=== PATIENT | female | born 2005 | race Caucasian/White ===

== ENCOUNTER 2023-11-19 01:13 | Emergency (ER) | payer OTHER, SELFPAY ==
--- NOTE | 2023-11-19 | ECG_ITS ---
Test Reason : SYNCOPE Blood Pressure : / mmHG Vent. Rate : 086 BPM Atrial Rate : 086 BPM P-R Int : 124 ms QRS Dur : 088 ms QT Int : 402 ms P-R-T Axes : 029 041 024 degrees QTc Int : 481 ms Normal sinus rhythm with sinus arrhythmia Prolonged QT Abnormal ECG No previous ECGs available Referred By: Generic ED Physician Electronically Signed By:CAPO CORTES MD
[2023-11-19 01:21] VITALS: BP 123/84; PULSE 93; RESP 16; TEMP 36.8; O2SAT 99; BMI 24.9
[2023-11-19 01:52] LABS: MANUAL DIFF FLAG NO
[2023-11-19 01:55] LABS: Basophils Absolute Auto 0.1 X10*3/uL (0.0-0.2); Basophils Percent Auto 0.4 % (0-2); Eosinophils Absolute Auto 0.1 X10*3/uL (0.0-0.4); Eosinophils Percent Auto 0.5 % (0-4); Hematocrit 37.1 % (37.0-47.0); Hemoglobin 13.6 g/dl (12.0-16.0); Imm Gran Abs Auto 0.04 X10*3/uL (0.00-0.03); Imm Gran Pct Auto 0.3 % (0.0-0.4); Lymphocytes Absolute Auto 1.9 X10*3/uL (1.2-4.9); Lymphocytes Percent Auto 15.8 % (20-40); Mean Corpuscular HGB Conc 36.7 g/dl (31.0-35.0); Mean Corpuscular Hemoglobin 31.6 pg (27.0-33.0); Mean Corpuscular Volume 86.1 fL (80.0-98.0); Monocytes Absolute Auto 0.8 X10*3/uL (0.1-1.2); Monocytes Percent Auto 6.6 % (2-11); Neutrophils Absolute Auto 9.3 x10*3/uL (2.0-8.3); Neutrophils Percent Auto 76.4 % (45-73); Platelet Count 375 X10*3/uL (160-400); Red Blood Count 4.31 X10*6/uL (4.20-5.50); Red Cell Distribution Width 12.4 % (11.0-16.0); White Blood Count 12.2 X10*3/uL (4.8-10.8)
[2023-11-19 02:04] LABS: Appearance Urine Clear; Color Urine Yellow; Glucose Urine UA Negative (Negative); Leukocyte Esterase Urine Negative (Negative); Nitrite Urine Negative (Negative); PH 6.5 (5.0-9.0); Specific Gravity - Urine 1.015 (1.005-1.025); Urine Blood Negative (Negative); Urine Ketones Negative (Negative); Urine Protein Negative (Neg-Trace)
[2023-11-19 02:07] LABS: Ethanol < 10 mg/dL
[2023-11-19 02:10] LABS: Amphetamine Screen Urine Not Detected (Not Detect); Barbiturates, Urine Not Detected (Not Detect); Benzodiazepines Screen Urine Not Detected (Not Detect); Cannabinoid Screen Urine POSITIVE (Not Detect); Cocaine Screen Urine Not Detected (Not Detect); Fentanyl, urine Not Detected (Not Detect); Opiate Screen Urine Not Detected (Not Detect); Phencyclidine Screen Urine Not Detected (Not Detect)
[2023-11-19 02:12] LABS: Troponin-I High Sensitivity < 2.7 ng/L (<3.5-17.0)
[2023-11-19 02:16] LABS: Alanine Aminotransferase 9 U/L (0-31); Albumin Level 4.7 g/dL (3.5-5.0); Alkaline Phosphatase 55 U/L (39-117); Anion Gap 15 (12-20); Aspartate Amino Transferase 16 U/L (5-31); Bilirubin Total 0.4 mg/dL (0.0-1.0); Blood Urea Nitrogen 12 mg/dL (9-16); Calcium 9.7 mg/dL (8.4-10.2); Carbon Dioxide 24 mmol/L (22-29); Chloride 101 mmol/L (96-108); Creatinine Clr Calc Pharmacy 111.4; Estimated Glomerular Filt Rate > 60; Glucose Random 135 mg/dL (60-115); Lipase 30 U/L (8-78); Potassium 2.9 mmol/L (3.3-5.1); Sodium 137 mmol/L (135-145); Total Protein 7.7 g/dL (6.5-8.0)
[2023-11-19 02:19] LABS: HCG Quantitative < 2 mIU/mL
[2023-11-19 02:46] VITALS: BP 119/78; PULSE 77
[2023-11-19 02:48] VITALS: BP 120/78; BP 127/77; PULSE 77; PULSE 98
[2023-11-19 02:53] VITALS: BP 119/78; PULSE 77; RESP 16; TEMP 36.6; O2SAT 100
--- NOTE | 2023-11-19 03:06 | ED_ITS ---
HPI - Syncope General Chief Complaint: Syncope Stated Complaint: Syncope/Vomiting Time Seen by Provider: 11/19/23 03:02 Source: patient Mode of arrival: ambulatory Limitations: no limitations History of Present Illness HPI narrative: Patient no significant past medical history used to play sports without any heart problem got up from bed to go to bathroom felt lightheaded and passed out hitting her head to the wall her friend was in the bathroom who had her down no seizure activity no confusion after the fall no chest pain no palpitation patient never had similar episode in the past no family history of seizures patient vomited after the syncope episode had few drinks last night without any abdominal pain or vomiting does have leg cramps Related Data Allergies Allergy/AdvReac Type Severity Reaction Status Date / Time No Known Allergies Allergy Verified 11/19/23 01:21 Review of Systems 2 Review of Systems: Yes all other systems are reviewed and are negative [facility] Social History Social History Alcohol intake: current Smoked in Last 30 Days: No Use of substances other than those prescribed or required for medical reasons: Yes Substance Use Type: Marijuana Substance Use Frequency: Occasionally Last Used Substance: Just Prior to Admission Any prior treatment program specific to substance use: No Advance Directives: No Advance Directives Information Provided: Yes Physical Exam 2 Vital Signs: Vital Signs: Last Vital Signs Temp 98 F 11/19/23 02:53 Pulse 77 11/19/23 02:53 Resp 16 11/19/23 02:53 BP 119/78 11/19/23 02:53 Pulse Ox 100 11/19/23 02:53 O2 Del Method Room Air 11/19/23 02:53 BMI result Body Mass Index 24.9 Appearance: Alert. Oriented X3. No acute distress. Normal orthostatics Eyes: PERRLA, No Nystagmus ENT: Pharynx normal. Oral Mucosa moist no tongue bite teeth intact Neck: Normal inspection. Neck supple. CVS: Normal heart rate and rhythm. Pulses normal. No murmur Respiratory: No respiratory distress. Equal air entry bilateral, no wheezing/rales/rhonchi Abdomen: Soft and nontender. Bowel sounds are present, no mass palpable, no CVA tenderness Skin: Skin warm and dry. Normal skin color. Normal skin turgor. Extremities: No lower extremity edema. No calf tenderness Neuro: Oriented X 3. No motor deficit. No sensory deficit.No cerebellar signs , cranial nerves II-XII intact Medications Administered Discontinued Medications Generic Name Dose Route Start Last Admin Trade Name Zo PRN Reason Stop Dose Admin Sodium Chloride 1,000 mls @ 999 mls/hr 11/19/23 03:05 11/19/23 03:25 Ns IV 11/19/23 04:05 999 mls/hr .Q1H1M ONE Administration Potassium Chloride 10 meq in 100 mls @ 100 mls/hr 11/19/23 03:05 11/19/23 03:25 Potassium Chloride/H20 IV 11/19/23 04:04 100 mls/hr ONCE ONE Administration Potassium Bicarbonate 50 meq 11/19/23 03:05 11/19/23 03:24 Potassium Bicarbonate/Cit Ac 25 Meq Tablet.Eff PO 11/19/23 03:06 50 meq ONCE ONE Administration Medical Decision Making Medical Decision Making [facility] Narrative: Patient with syncope episode likely vasovagal is early noticed to have potassium of 2.9 patient does not have any history of hypokalemia etiology not very clear will give IV potassium and p.o. potassium Differential Diagnosis Differential Diagnoses: The differential diagnosis associated with the presentation includes CARDIAC ARRHYTHMIAS/VASOVAGAL/METABOLIC Admission/Observation Consideration of admission/observation: Escalation of care including admission/observation considered Lab Data [facility] Lab Attestation statement: I reviewed the patient's lab results. 11/19/23 01:47 11/19/23 01:47 Labs: Lab Results 11/19/23 11/19/23 Range/Units 01:47 01:53 WBC 12.2 H (4.8-10.8) X10*3/uL RBC 4.31 (4.20-5.50) X10*6/uL Hgb 13.6 (12.0-16.0) g/dl Hct 37.1 (37.0-47.0) % MCV 86.1 (80.0-98.0) fL MCH 31.6 (27.0-33.0) pg MCHC 36.7 H (31.0-35.0) g/dl RDW 12.4 (11.0-16.0) % Plt Count 375 (160-400) X10*3/uL MPV 9.0 L (9.4-12.3) fL Immature Gran % (Auto) 0.3 (0.0-0.4) % Neut % (Auto) 76.4 H (45-73) % Lymph % (Auto) 15.8 L (20-40) % [place] % (Auto) 6.6 (2-11) % Eos % (Auto) 0.5 (0-4) % Baso % (Auto) 0.4 (0-2) % Lymph # (Auto) 1.9 (1.2-4.9) X10*3/uL [place] # (Auto) 0.8 (0.1-1.2) X10*3/uL Eos # (Auto) 0.1 (0.0-0.4) X10*3/uL Baso # (Auto) 0.1 (0.0-0.2) X10*3/uL Abs Immat Gran (auto) 0.04 H (0.00-0.03) X10*3/uL Absolute Neuts (auto) 9.3 H (2.0-8.3) x10*3/uL Absolute Nucleated RBC 0.000 (0.0-0.012) X10*3/uL Nucleated RBC % (auto) 0.0 (0.0-0.2) /100WBC Sodium 137 (135-145) mmol/L Potassium 2.9 L* (3.3-5.1) mmol/L Chloride 101 (96-108) mmol/L Carbon Dioxide 24 (22-29) mmol/L Anion Gap 15 (12-20) BUN 12 (9-16) mg/dL Creatinine 0.73 (0.5-1.4) mg/dL Estim Creat Clear Calc 111.4 Estimated GFR > 60 Random Glucose 135 H (60-115) mg/dL Calcium 9.7 (8.4-10.2) mg/dL Magnesium 1.8 (1.6-2.6) mg/dL Total Bilirubin 0.4 (0.0-1.0) mg/dL AST 16 (5-31) U/L ALT 9 (0-31) U/L Alkaline Phosphatase 55 (39-117) U/L Troponin I High Sens < 2.7 (<3.5-17.0) ng/L Total Protein 7.7 (6.5-8.0) g/dL Albumin 4.7 (3.5-5.0) g/dL Lipase 30 (8-78) U/L Beta HCG, Quant < 2 mIU/mL Urine Color Yellow Urine Appearance Clear Urine pH 6.5 (5.0-9.0) Ur Specific [place] 1.015 (1.005-1.025) Urine Protein Negative (Neg-Trace) mg/dL Urine Glucose (UA) Negative (Negative) mg/dL Urine Ketones Negative (Negative) mg/dL Urine Blood Negative (Negative) Urine Nitrite Negative (Negative) Ur Leukocyte Esterase Negative (Negative) Urine Opiates Screen Not Detected (Not Detect) Urine Fentanyl Screen Not Detected (Not Detect) Ur Barbiturates Screen Not Detected (Not Detect) Ur Phencyclidine Scrn Not Detected (Not Detect) Ur Amphetamines Screen Not Detected (Not Detect) U Benzodiazepines Scrn Not Detected (Not Detect) Urine Cocaine Screen Not Detected (Not Detect) U Marijuana (THC) Screen POSITIVE H (Not Detect) Ethyl Alcohol < 10 mg/dL Independent Interpretation I performed an independent interpretation of an: EKG Interpretation: Normal sinus rhythm QTcinterval [address] T wave changes no acute ischemia Discharge Plan Discharge Clinical Impression: Vasovagal syncope, Hypokalemia Patient Disposition: Home, Self-Care Instructions: Potassium Content of Foods List (ED), Hypokalemia (ED), Syncope (ED) Additional Instructions: DRINK PLENTY OF FLUIDS HAVE BANANAS/ORANGE JUICE DAILY YOUR POTASSIUM LEVEL WAS 2.9 TODAY FOLLOW WITH PCP AND HAVE POTASSIUM RECHECKED IN NEXT 2-3 DAYS REPORT TO THE ER IF RECURRENT OF SYNCOPE EPISODE
[2023-11-19] MEDS: Potassium Bicarbonate/Cit AC 25 MEQ TABLET.EFF 50 MEQ PO (03:24)
[2023-11-19] MEDS: Potassium Chloride/H20 10 MEQ/100 ML PIGGYBACK 100 MEQ IV (03:25)
[2023-11-19] MEDS: 0.9 % Sodium Chloride 1,000 ML 999 ML IV (03:25)
[2023-11-19 03:57] VITALS: PULSE 74
[2023-11-19 04:19] LABS: Magnesium 1.8 mg/dL (1.6-2.6)
[2023-11-19 04:40] VITALS: BP 117/73; PULSE 82; RESP 16; TEMP 36.6; O2SAT 100
[2023-11-19] MEDS: ondansetron HCL 4 MG/2 ML VIAL IVPUSH (04:41)
== END 2023-11-19 04:59 | disposition home or self-care (01) ==
PROVIDERS: Emergency Provider Internal Medicine
DX: R55 Syncope and collapse (principal); E87.6 Hypokalemia; I49.8 Other specified cardiac arrhythmias; R11.2 Nausea with vomiting, unspecified; F12.90 Cannabis use, unspecified, uncomplicated; Z79.899 Other long term (current) drug therapy
CPT/HCPCS: 36415; 80053; 80307; 81003; 83690; 83735; 84484; 84702; 85025; 93005; 96361; 96374; 96375; 99284; 99285; J2405; J3480

== ENCOUNTER → 2023-11-19 01:33 | Outpatient (BNV) | payer OTHER, SELFPAY | PROVIDERS: Emergency Provider Internal Medicine; Visit Provider Internal Medicine Cardiovascular Disease | DX: R55 Syncope and collapse (principal) | CPT/HCPCS: 93010 ==